=== PATIENT | male | born 1940 | race Two or more races ===

== ENCOUNTER → 2022-05-05 | Emergency (ER) | payer OTHER ==
[~2022-05-05] VITALS: Ht 170.2 cm; Wt 98.9 kg
[~2022-05-05] MED LIST: GLUMETZA500 MG
== END | disposition home or self-care (01) ==
LOC: ER 00:45
DX: M54.9 Dorsalgia, unspecified (principal); I10 Essential (primary) hypertension; E11.9 Type 2 diabetes mellitus without complications; Z79.84 Long term (current) use of oral hypoglycemic drugs

== ENCOUNTER 2022-06-14 10:03 | Inpatient (IN) | payer OTHER ==
[~2022-06-14] VITALS: Ht 170.2 cm; Wt 113.4 kg
[2022-06-14] MEDS ORDERED: AVAPRO300 MG (10:54)
[2022-06-14] MEDS ORDERED: DULCOLAX5 MG (11:28)
[2022-06-14] MEDS ORDERED: NORVASC5 MG (11:29)
[2022-06-14] MEDS ORDERED: PROTONIX20 MG (11:30)
[2022-06-14] MEDS ORDERED: JANTOVEN5 MG (11:31)
[2022-06-14] MEDS ORDERED: TIVORBEX20 MG (11:32)
[2022-06-18] MEDS ORDERED: LOSARTAN POTAS100 MG PO (12:50)
[2022-06-18] MEDS ORDERED: TOPROL XL25 M1 PO (12:50)
[2022-06-18] MEDS ORDERED: JANTOVEN5 MG PO (12:50)
[2022-06-18] MEDS ORDERED: ISOSORBIDE MONO30 MG PO (12:50)
[2022-06-18] MEDS ORDERED: AMLODIPINE BESYL5 MG PO (12:50)
== END 2022-06-18 13:55 | disposition home or self-care (01) | DRG 305 ==
LOC: ER 10:03 → MEDJ 18:34
PROVIDERS: ADMIT Internal Medicine; ATTEND Internal Medicine
PROC: B24BYZZ Ultrasonography of Heart with Aorta using Other Contrast (ICD-10-PCS; 2022-06-14)
PROC: BW28ZZZ Computerized Tomography (CT Scan) of Head (ICD-10-PCS; principal; 2022-06-15)
PROC: C22G1ZZ Tomographic (Tomo) Nuclear Medicine Imaging of Myocardium using Technetium 99m (Tc-99m) (ICD-10-PCS; 2022-06-17)
DX: I16.9 Hypertensive crisis, unspecified (principal); Z68.42 Body mass index [BMI] 45.0-49.9, adult; I50.1 Left ventricular failure, unspecified; E11.9 Type 2 diabetes mellitus without complications; E66.9 Obesity, unspecified; I25.9 Chronic ischemic heart disease, unspecified; I10 Essential (primary) hypertension; I73.9 Peripheral vascular disease, unspecified; Z79.4 Long term (current) use of insulin; Z79.01 Long term (current) use of anticoagulants

== ENCOUNTER → 2022-07-01 | Emergency (ER) | payer OTHER ==
[~2022-07-01] VITALS: Wt 99.8 kg
[~2022-07-01] MED LIST changes: +AMLODIPINE BESYL5 MG PO; +AVAPRO300 MG; +DULCOLAX5 MG; +ISOSORBIDE MONO30 MG PO; +JANTOVEN5 MG; +JANTOVEN5 MG PO; +LOSARTAN POTAS100 MG PO; +NORVASC5 MG; +PROTONIX20 MG; +TIVORBEX20 MG; +TOPROL XL25 M1 PO
== END | disposition home or self-care (01) ==
LOC: ER 08:49
DX: I50.9 Heart failure, unspecified (principal); Z20.822 Contact with and (suspected) exposure to COVID-19

== ENCOUNTER 2022-11-27 09:25 | Outpatient (CLI) | payer OTHER | END 2022-11-27 09:41 | disposition home or self-care (01) | LOC: NUCLEAR 09:25 | PROVIDERS: ATTEND Internal Medicine Cardiovascular Disease | DX: I73.9 Peripheral vascular disease, unspecified (principal); I11.9 Hypertensive heart disease without heart failure; E78.2 Mixed hyperlipidemia ==

== ENCOUNTER 2025-07-02 09:43 | Inpatient (IN) | payer OTHER ==
[~2025-07-02] VITALS: Ht 170.2 cm; Wt 99.3 kg
--- NOTE | 2025-07-02 10:14 | NUR ---
PTE NO ALERTA Y NO RESPONDE A ORDENES VERBALES ACOMPANADO POR HIJOS Y ESTOS REFIEREN HABERSE LEVANTADO SIN LA HABILIDAD DE PARARSE NI EXPRESARSE. PTE NO RESPONDE A DOLOR, ORDENES VERBALES. SE HERB S/V Y SE UBICA EN LA [address] DOM[address]
--- NOTE | 2025-07-02 10:28 | NUR ---
SE ORIENTA A PACIENTE SOBRE TRATAMIENTO MEDICO, REFIERE ENTENDER. SE REALIZAN MUESTRAS DE LABORATORIO BAJO MEDIDAS ASEPTICAS. SE ADMINISTRAN MEDICAMENTOS SEUGN ORDEN MEDICA. SE COORDINA CT.
[2025-07-02] MEDS ORDERED: RINGERS SOLUTION,LACTATED 1,000 ML IV SCH (10:30)
[2025-07-02] MEDS ORDERED: FAMOTIDINE/PF 20 MG in 0.9 % SODIUM CHLORIDE 8 ML IV PUSH ONE (10:30)
[2025-07-02] MEDS ORDERED: ONDANSETRON HCL 4 MG in 0.9 % SODIUM CHLORIDE 50 ML IV ONE (10:30)
[2025-07-02 10:37] LABS: BASO % 0.3 % (0.1-1.2); EOS # 0.12 (0.04-0.54); EOS % 1.3 % (0.7-7.0); LYMPH # 1.61 (1.18-3.74); LYMPH % 17.3 % (19.3-53.1); MEAN PLATELET VOLUME 9.80 fl (9.4-12.4); MONO # 0.95 (0.24-0.82); MONO % 10.2 % (4.7-12.5); NEUT # 6.53 (1.56-6.13); NEUT % 70.4 % (34.0-71.1); RED CELL DISTRIBUTION WIDTH 14.0 % (11.6-14.4)
[2025-07-02 10:44] LABS: ERYTHROCYTE SEDIMENTATION RATE 35 mm/hr (0-20)
[2025-07-02 11:07] LABS: D DIMER 3.93 MG/L; INR 0.97
[2025-07-02 11:15] LABS: ALT/SGPT 25.0 U/L (12-78); AST/SGOT 19.0 U/L (15-37); BILIRUBIN TOTAL 0.68 mg/dL (0.3-1.2); BUN CREA RATIO 19.0 (7.0-25.0); CREATININE SERUM 1.81 mg/dL (0.70-1.30); GFR 35.81; GLOBULINA 4.6 G/DL (2.4-3.5); GLUCOSE FASTING 154.0 mg/dL (65-100); OSMOLALITY SERUM 292.0 MOSM/KG (275-295)
[2025-07-02 11:44] LABS: COVID-19 AG NEGATIVE (NEGATIVE)
[2025-07-02 12:15] LABS: URINE APPEARANCE Clear; URINE BILIRRUBIN Negative (NEGATIVE); URINE BLOOD Trace; URINE COLOR Yellow; URINE GLUCOSE Negative (NEGATIVE); URINE KETONE Trace (NEGATIVE); URINE LEUKOCYTE Negative; URINE NITRATE Negative; URINE UROBILINOGEN 0.2 E.U./dl
[2025-07-02 12:19] LABS: URINE BACTERIA 11.9 uL (0.0-1933); URINE CAST 3.66 uL (0.0-1.40); URINE EPITHELIAL CELLS 10.6 uL (0.0-38.8); URINE RBC 9.0 uL (0.0-20.8); URINE WBC 8.6 uL (0.0-23.2)
[2025-07-02 12:51] LABS: URINE PROTEIN 100 (NEGATIVE)
[2025-07-02] MEDS ORDERED: ATORVASTATIN CALCIUM 40 MG TABLET PO ONE (15:00)
[2025-07-02] MEDS ORDERED: TICAGRELOR 90 MG TABLET PO ONE (15:00)
[2025-07-02] MEDS ORDERED: ASPIRIN 325 MG TABLET.EC PO ONE (15:00)
[2025-07-02] MEDS ORDERED: NITROGLYCERIN IN 5 % DEXTROSE 250 ML IV SCH (15:00)
--- NOTE | 2025-07-02 20:27 | NUR ---
SE RECIBE PACIENTE DESDE AREA DE OBSERVACION. SE UBICA EN CAMA #18, SE ENCUENTRA ALERTA Y ACTIVO. PACIENTE CON CANULA NASAL A 3L. SE CONECTA PACIENTE A MONITOR CARDIACO Y OXIMETRIA DE PULSO CONTINUA. PACIENTE CANALIZADO EN RA CON ANGIO #18 QUE SE ENCUENTRA PATENTE, SWAPNIL DE EDEMA Y PROCESOS INFECCIOSOS CON UN R/L BAJANDO A 40ML/HR. SE OBSERVA SONDA URINARIA PATENTE, BAJANDO A GRAVEDAD CON EGRESO URINARIO COLOR AMARILLO OBSCURO. SE ADMINISTRAN MEDICAMENTOS Y SE EXTRAEN MUESTRAS DE LABORATORIO WERNER ORDEN MEDICA. PENDIENTE CONSULTA.
[2025-07-02] MEDS ORDERED: INSULIN LISPRO 1,000 UNIT/10 ML UNITS SUBCUTANEO PRN (21:30)
[2025-07-02] MEDS ORDERED: DEXTROSE 50 % IN WATER 0.5 G/ML DISP.SYRIN IV PRN (21:30)
[2025-07-02] MEDS ORDERED: ENOXAPARIN SODIUM 40 MG/0.4 ML SYRINGE SUBCUTANEO SCH (21:48)
[2025-07-02 23:00] VITALS: BP 140/76; O2SAT 100
[2025-07-03] VITALS (8 sets, daily range): BP systolic 138–195; BP diastolic 76–97; O2SAT 97–100
[2025-07-03 04:14] LABS: INR 1.02
[2025-07-03 04:24] LABS: BUN CREA RATIO 20.0 (7.0-25.0); CREATININE SERUM 1.49 mg/dL (0.70-1.30); GFR 44.82; GLUCOSE FASTING 126.0 mg/dL (65-100); OSMOLALITY SERUM 289.0 MOSM/KG (275-295); TSH 1.55 uIU/mL (0.358-3.74)
[2025-07-03 04:37] LABS: BASO % 0.3 % (0.1-1.2); EOS # 0.12 (0.04-0.54); EOS % 1.2 % (0.7-7.0); LYMPH # 2.04 (1.18-3.74); LYMPH % 20.6 % (19.3-53.1); MEAN PLATELET VOLUME 9.90 fl (9.4-12.4); MONO # 1.09 (0.24-0.82); MONO % 11.0 % (4.7-12.5); NEUT # 6.57 (1.56-6.13); NEUT % 66.2 % (34.0-71.1); RED CELL DISTRIBUTION WIDTH 13.9 % (11.6-14.4)
[2025-07-03] MEDS ORDERED: NITROGLYCERIN IN 5 % DEXTROSE 250 ML IV SCH (08:45)
[2025-07-03] MEDS ORDERED: IRBESARTAN 300 MG TABLET PO SCH (09:00)
[2025-07-03] MEDS ORDERED: ENOXAPARIN SODIUM 100 MG/ML SYRINGE SUBCUTANEO SCH (09:00)
[2025-07-03] MEDS ORDERED: hydrALAZINE HCL 20 MG VIAL IV PRN (13:30)
[2025-07-03] MEDS ORDERED: IPRATROPIUM BROMIDE 0.5 MG/2.5 ML AMPUL.NEB IH SCH (14:00)
[2025-07-03] MEDS ORDERED: CLOPIDOGREL BISULFATE 75 MG TABLET PO NR ×2 (14:00→15:30)
[2025-07-03] MEDS ORDERED: ASPIRIN 81 MG TABLET.EC PO SCH (14:26)
[2025-07-03] MEDS ORDERED: CARVEDILOL 12.5 MG TABLET PO SCH (17:00)
[2025-07-04] VITALS (8 sets, daily range): BP systolic 139–160; BP diastolic 74–86; O2SAT 97–100
[2025-07-04 06:43] LABS: BASO % 0.3 % (0.1-1.2); EOS # 0.26 (0.04-0.54); EOS % 2.8 % (0.7-7.0); LYMPH # 2.52 (1.18-3.74); LYMPH % 26.8 % (19.3-53.1); MEAN PLATELET VOLUME 10.00 fl (9.4-12.4); MONO # 0.80 (0.24-0.82); MONO % 8.5 % (4.7-12.5); NEUT # 5.75 (1.56-6.13); NEUT % 61.2 % (34.0-71.1); RED CELL DISTRIBUTION WIDTH 14.3 % (11.6-14.4)
[2025-07-04 07:39] LABS: ALT/SGPT 15.0 U/L (12-78); AST/SGOT 16.0 U/L (15-37); BILIRUBIN TOTAL 0.72 mg/dL (0.3-1.2); BUN CREA RATIO 22.0 (7.0-25.0); CREATININE SERUM 1.4 mg/dL (0.70-1.30); GFR 48.16; GLOBULINA 3.3 G/DL (2.4-3.5); GLUCOSE FASTING 90.0 mg/dL (65-100); OSMOLALITY SERUM 293.0 MOSM/KG (275-295)
[2025-07-04 07:51] LABS: PROSTATIC SPECIFIC ANTIGEN 0.753 NG/ML (0.010-4.00); TSH 3.52 uIU/mL (0.358-3.74)
[2025-07-04 07:57] LABS: INR 1.06
[2025-07-04] MEDS ORDERED: CLOPIDOGREL BISULFATE 75 MG TABLET PO SCH (09:00)
[2025-07-04] MEDS ORDERED: ISOSORBIDE MONONITRATE 30 MG TABLET PO STA (11:36)
[2025-07-04] MEDS ORDERED: AZITHROMYCIN 500 MG VIAL IV SCH (22:10)
[2025-07-04] MEDS ORDERED: CEFTRIAXONE SODIUM 2,000 MG in 0.9 % SODIUM CHLORIDE 100 ML IV SCH (22:10)
[2025-07-05] VITALS (8 sets, daily range): BP systolic 159–160; BP diastolic 79–86; O2SAT 93–100
[2025-07-05] MEDS ORDERED: ISOSORBIDE MONONITRATE 30 MG TABLET PO SCH (09:00)
[2025-07-05] MEDS ORDERED: PIPERACILLIN/TAZOBACTAM SODIUM 3.375 GM VIAL IV SCH (12:00)
[2025-07-05] MEDS ORDERED: LACTOBACILLUS ACIDOPHILUS 1 CAP CAP PO SCH (17:00)
[2025-07-06] VITALS (8 sets, daily range): BP systolic 150–197; BP diastolic 80–101; O2SAT 96–100
[2025-07-06] MEDS ORDERED: AZITHROMYCIN 500 MG VIAL IV ONE (07:48)
[2025-07-06] MEDS ORDERED: MINERAL OIL 133 ML ENEMA RECTAL ONE (08:30)
[2025-07-06] MEDS ORDERED: DOCUSATE SODIUM 100MG CAP PO SCH (09:00)
[2025-07-06] MEDS ORDERED: POLYETHYLENE GLYCOL 3350 17 GM BLIST.PACK PO SCH (17:43)
[2025-07-07] VITALS (10 sets, daily range): BP systolic 123–184; BP diastolic 71–93; O2SAT 96–100
[2025-07-07 06:16] LABS: BASO % 0.2 % (0.1-1.2); EOS # 0.35 (0.04-0.54); EOS % 4.3 % (0.7-7.0); LYMPH # 2.12 (1.18-3.74); LYMPH % 26.2 % (19.3-53.1); MEAN PLATELET VOLUME 9.80 fl (9.4-12.4); MONO # 0.59 (0.24-0.82); MONO % 7.3 % (4.7-12.5); NEUT # 4.99 (1.56-6.13); NEUT % 61.8 % (34.0-71.1); RED CELL DISTRIBUTION WIDTH 13.4 % (11.6-14.4)
[2025-07-07 06:56] LABS: ALT/SGPT 16.0 U/L (12-78); AST/SGOT 14.0 U/L (15-37); BILIRUBIN TOTAL 0.57 mg/dL (0.3-1.2); BUN CREA RATIO 13.0 (7.0-25.0); CREATININE SERUM 1.09 mg/dL (0.70-1.30); GFR 64.29; GLOBULINA 3.4 G/DL (2.4-3.5); GLUCOSE FASTING 106.0 mg/dL (65-100); OSMOLALITY SERUM 284.0 MOSM/KG (275-295)
[2025-07-07] MEDS ORDERED: AZITHROMYCIN 500 MG VIAL IV ONE (08:08)
[2025-07-07] MEDS ORDERED: GUAIFENESIN 600 MG TABLET.SA PO SCH (09:00)
[2025-07-07 14:23] LABS: URINE APPEARANCE Clear; URINE BILIRRUBIN Negative (NEGATIVE); URINE BLOOD Moderate; URINE COLOR Yellow; URINE GLUCOSE Negative (NEGATIVE); URINE KETONE Negative (NEGATIVE); URINE LEUKOCYTE Trace; URINE NITRATE Negative; URINE PROTEIN 30 (NEGATIVE); URINE UROBILINOGEN 0.2 E.U./dl
[2025-07-07 14:24] LABS: URINE BACTERIA 82.3 uL (0.0-1933); URINE EPITHELIAL CELLS 2.4 uL (0.0-38.8); URINE RBC 130.2 uL (0.0-20.8); URINE WBC 18.8 uL (0.0-23.2)
[2025-07-07 14:29] LABS: URINE CAST 0.56 uL (0.0-1.40)
[2025-07-07] MEDS ORDERED: CEFEPIME HCL 2,000 MG VIAL IV SCH (17:00)
[2025-07-07] MEDS ORDERED: DOXAZOSIN MESYLATE 2 MG TABLET PO SCH (21:00)
[2025-07-08] VITALS (9 sets, daily range): BP systolic 160–188; BP diastolic 81–94; O2SAT 96–100
[2025-07-08] MEDS ORDERED: AZITHROMYCIN 500 MG VIAL IV ONE (07:36)
[2025-07-09] VITALS (9 sets, daily range): BP systolic 145–198; BP diastolic 81–92; O2SAT 96–100
[2025-07-09] MEDS ORDERED: IPRATROPIUM BROMIDE 0.5 MG/2.5 ML AMPUL.NEB IH SCH (01:00)
[2025-07-09] MEDS ORDERED: HYDROCHLOROTHIAZIDE 12.5 MG CAPSULE PO SCH (09:42)
[2025-07-09] MEDS ORDERED: AZITHROMYCIN 500 MG VIAL IV ONE (10:15)
[2025-07-09] MEDS ORDERED: GUAIFEN/DEXTROMETHORPHAN/PE 10 ML BLIST.PACK PO PRN (13:45)
[2025-07-09] MEDS ORDERED: HYDROCHLOROTHIAZIDE 12.5 MG CAPSULE PO STA (14:12)
[2025-07-09] MEDS ORDERED: DOXAZOSIN MESYLATE 4 MG TABLET PO SCH (17:00)
[2025-07-09] MEDS ORDERED: DOXAZOSIN MESYLATE 2 MG TABLET PO SCH (17:00)
[2025-07-10] VITALS (9 sets, daily range): BP systolic 137–170; BP diastolic 72–92; O2SAT 94–99
[2025-07-10] MEDS ORDERED: AZITHROMYCIN 500 MG VIAL IV ONE (07:38)
[2025-07-10] MEDS ORDERED: HYDROCHLOROTHIAZIDE 25 MG TABLET PO SCH (09:00)
[2025-07-10] MEDS ORDERED: DOXAZOSIN MESYLATE 4 MG TABLET PO SCH (09:00)
[2025-07-10] MEDS ORDERED: DOXAZOSIN MESYLATE 2 MG TABLET PO SCH (17:00)
[2025-07-10] MEDS ORDERED: BENZONATATE 100 MG CAPSULE PO SCH (19:27)
[2025-07-10] MEDS ORDERED: LACTULOSE 20 G/30 ML BLIST.PACK PO ONE (19:30)
[2025-07-10] MEDS ORDERED: MINERAL OIL 30 ML BLIST.PACK PO ONE (19:30)
[2025-07-10] MEDS ORDERED: MAGNESIUM HYDROXIDE 400 MG/5 ML ML PO ONE (19:30)
[2025-07-10] MEDS ORDERED: GUAIFEN/DEXTROMETHORPHAN/PE 10 ML BLIST.PACK PO SCH (21:00)
[2025-07-10] MEDS ORDERED: MAGNESIUM HYDROXIDE 30 ML BLIST.PACK PO ONE (22:49)
[2025-07-11] VITALS (9 sets, daily range): BP systolic 114–197; BP diastolic 66–83; O2SAT 96–100
[2025-07-11 06:14] LABS: BASO % 0.5 % (0.1-1.2); EOS # 0.28 (0.04-0.54); EOS % 3.4 % (0.7-7.0); LYMPH # 1.86 (1.18-3.74); LYMPH % 22.4 % (19.3-53.1); MEAN PLATELET VOLUME 9.80 fl (9.4-12.4); MONO # 0.82 (0.24-0.82); MONO % 9.9 % (4.7-12.5); NEUT # 5.27 (1.56-6.13); NEUT % 63.3 % (34.0-71.1); RED CELL DISTRIBUTION WIDTH 13.5 % (11.6-14.4)
[2025-07-11 06:38] LABS: ALT/SGPT 16.0 U/L (12-78); AST/SGOT 15.0 U/L (15-37); BILIRUBIN TOTAL 0.59 mg/dL (0.3-1.2); BUN CREA RATIO 17.0 (7.0-25.0); CREATININE SERUM 1.05 mg/dL (0.70-1.30); GFR 67.13; GLOBULINA 3.5 G/DL (2.4-3.5); GLUCOSE FASTING 96.0 mg/dL (65-100); OSMOLALITY SERUM 283.0 MOSM/KG (275-295)
[2025-07-11] MEDS ORDERED: AZITHROMYCIN 500 MG VIAL IV ONE (08:32)
[2025-07-11] MEDS ORDERED: LACTULOSE 10 G/15 ML ML RECTAL ONE (10:00)
[2025-07-11] MEDS ORDERED: MINERAL OIL 133 ML ENEMA RECTAL ONE (10:00)
[2025-07-11] MEDS ORDERED: SOD FERRIC GLUC COMPLX/SUCROSE 62.5 MG in 0.9 % SODIUM CHLORIDE 50 ML IV SCH (16:10)
[2025-07-11] MEDS ORDERED: PANTOPRAZOLE SODIUM 40 MG TABLET.DR PO SCH (17:00)
[2025-07-11] MEDS ORDERED: VITAMIN B COMPLEX/LYSINE 15 ML BLIST.PACK PO SCH (17:47)
[2025-07-12] VITALS (8 sets, daily range): BP systolic 131–160; BP diastolic 72–82; O2SAT 96–99
[2025-07-12] MEDS ORDERED: PEG3350/SOD SULF,BICARB,CL/KCL 4,000 ML GALLON PO NR (09:45)
[2025-07-12 11:43] LABS: URINE APPEARANCE Clear; URINE BILIRRUBIN Negative (NEGATIVE); URINE BLOOD Moderate; URINE COLOR Yellow; URINE GLUCOSE Negative (NEGATIVE); URINE KETONE Negative (NEGATIVE); URINE LEUKOCYTE Negative; URINE NITRATE Negative; URINE PROTEIN 30 (NEGATIVE); URINE UROBILINOGEN 0.2 E.U./dl
[2025-07-12 11:46] LABS: URINE BACTERIA 17.1 uL (0.0-1933); URINE CAST 1.84 uL (0.0-1.40); URINE EPITHELIAL CELLS 4.1 uL (0.0-38.8); URINE RBC 73.9 uL (0.0-20.8); URINE WBC 5.8 uL (0.0-23.2)
[2025-07-12] MEDS ORDERED: GABAPENTIN 100 MG CAPSULE PO SCH (17:00)
[2025-07-12] MEDS ORDERED: VITAMIN B COMPLEX/LYSINE 15 ML BLIST.PACK PO SCH (17:00)
[2025-07-12] MEDS ORDERED: DIATRIZOATE MEGLUMINE, SODIUM 30 ML BOTTLE PO NR (17:45)
[2025-07-13] VITALS (8 sets, daily range): BP systolic 136–154; BP diastolic 70–75; O2SAT 73–100
[2025-07-13 12:36] LABS: ob POSITIVE (NEGATIVE)
[2025-07-13] MEDS ORDERED: LACTULOSE 20 G/30 ML BLIST.PACK PO SCH (13:00)
[2025-07-14 00:47] VITALS: O2SAT 100
[2025-07-14 01:59] VITALS: BP 164/81; O2SAT 98
[2025-07-14 03:21] VITALS: O2SAT 100
[2025-07-14] MEDS ORDERED: SOD FERRIC GLUC COMPLX/SUCROSE 62.5 MG/5 ML AMPUL IV ONE (07:53)
[2025-07-14 09:00] VITALS: BP 131/71; O2SAT 98
[2025-07-14] MEDS ORDERED: LACTULOSE 20 G/30 ML BLIST.PACK PO SCH (09:00)
[2025-07-14 21:22] VITALS: BP 185/89
[2025-07-15 03:45] VITALS: BP 182/106; O2SAT 100
[2025-07-15 08:28] VITALS: BP 170/82; O2SAT 99
[2025-07-15] MEDS ORDERED: PANTOPRAZOLE SO40 MG PO (08:51)
[2025-07-15] MEDS ORDERED: INTESTINEX680 M1 PO (08:51)
[2025-07-15] MEDS ORDERED: MIRALAX17 GM PO (08:52)
[2025-07-15] MEDS ORDERED: APETIGEN P12.5 MG/15 PO (08:52)
[2025-07-15] MEDS ORDERED: ENULOSE10 GM/15 M PO (08:53)
[2025-07-15] MEDS ORDERED: HYDRALAZINE HC100 MG PO (09:03)
[2025-07-15] MEDS ORDERED: DOXAZOSIN MESYLA2 MG PO (09:03)
== END 2025-07-15 17:30 | disposition home or self-care (01) | DRG 280 ==
LOC: ER 09:43 → MEDJ 23:16 → MEDI 07-06 12:55
PROVIDERS: General Practice; Internal Medicine; Internal Medicine Infectious Disease; Internal Medicine Nephrology; ADMIT Internal Medicine; ATTEND Internal Medicine
PROC: BW21ZZZ Computerized Tomography (CT Scan) of Abdomen and Pelvis (ICD-10-PCS; 2025-07-02)
PROC: B020ZZZ Computerized Tomography (CT Scan) of Brain (ICD-10-PCS; 2025-07-02)
PROC: B54DZZ3 Ultrasonography of Bilateral Lower Extremity Veins, Intravascular (ICD-10-PCS; 2025-07-02)
PROC: B44HZZZ Ultrasonography of Bilateral Lower Extremity Arteries (ICD-10-PCS; 2025-07-02)
PROC: 4A12X4Z Monitoring of Cardiac Electrical Activity, External Approach (ICD-10-PCS; principal; 2025-07-03)
PROC: BB24ZZZ Computerized Tomography (CT Scan) of Bilateral Lungs (ICD-10-PCS; 2025-07-03)
PROC: B246ZZZ Ultrasonography of Right and Left Heart (ICD-10-PCS; 2025-07-03)
PROC: 3E0F7GC Introduction of Other Therapeutic Substance into Respiratory Tract, Via Natural or Artificial Opening (ICD-10-PCS; 2025-07-03)
PROC: BW21ZZZ Computerized Tomography (CT Scan) of Abdomen and Pelvis (ICD-10-PCS; 2025-07-12)
DX: I21.A1 Myocardial infarction type 2 (principal); J69.0 Pneumonitis due to inhalation of food and vomit; J98.11 Atelectasis; N39.0 Urinary tract infection, site not specified; I80.221 Phlebitis and thrombophlebitis of right popliteal vein; I80.231 Phlebitis and thrombophlebitis of right tibial vein; K56.7 Ileus, unspecified; J40 Bronchitis, not specified as acute or chronic; D64.9 Anemia, unspecified; R41.82 Altered mental status, unspecified; I12.9 Hypertensive chronic kidney disease with stage 1 through stage 4 chronic kidney disease, or unspecified chronic kidney disease; N18.9 Chronic kidney disease, unspecified; K29.50 Unspecified chronic gastritis without bleeding; K59.09 Other constipation; G72.89 Other specified myopathies; I87.2 Venous insufficiency (chronic) (peripheral); N64.4 Mastodynia; E11.51 Type 2 diabetes mellitus with diabetic peripheral angiopathy without gangrene; Z95.818 Presence of other cardiac implants and grafts; Z79.84 Long term (current) use of oral hypoglycemic drugs; Z85.46 Personal history of malignant neoplasm of prostate; B96.20 Unspecified Escherichia coli [E. coli] as the cause of diseases classified elsewhere; B96.1 Klebsiella pneumoniae [K. pneumoniae] as the cause of diseases classified elsewhere